=== PATIENT | female | born 1980 | race Caucasian/White ===

== ENCOUNTER 2017-02-08 10:45 | Emergency (ER) | payer BC ==
[2017-02-08 10:53] VITALS: BMI 35.4
--- NOTE | 2017-02-08 11:04 | PDOC ---
History of Present Illness <Emery Tanner - Last Filed: 02/08/17 14:09> - History of Present Illness Initial Comments: 02/08/17 11:35 The patient is a 36 year old female with a past medical hx of NIDDM (on Metformin) and hypertension who presents to the ED complaining of nausea, vomiting, and diarrhea for four days. The patient reports 1-2 episodes of vomiting 10 episodes of diarrhea daily since the onset. She has not eaten any food in four days and has difficulty keeping any liquids down due to her symptoms. She states she lost 12 pounds in four days. The patient reports associated mild LUQ abdominal pain that started four days ago that she describes as a pressure. She reports nothing alleviates or exacerbates her pain. She denies any sick contacts. The patient reports chills, but denies fever, sweats, chest pain, SOB, melena, hematochezia, dysuria, hematuria Surgical: Cholecystectomy, hysterectomy, carpal tunnel, spinal fusion Social: Nonsmoker, denies alcohol or tobacco use <Sana Avalos - Last Filed: 02/08/17 15:29> - General Chief Complaint: Pain Stated Complaint: ABD PAIN, NAUSEA, VOMITING Time Seen by Provider: 02/08/17 11:03 Past History - Past Medical History Anemia: No Asthma: Yes Cancer: No Cardiac Disorders: No CVA: No COPD: No CHF: No Dementia: No Diabetes: Yes (NIDDM) GI Disorders: No Disorders: No HTN: Yes Hypercholesterolemia: Yes Liver Disease: No Suicide Attempt (Hx): No Seizures: No Thyroid Disease: No - Surgical History Abdominal Surgery: Yes (cyst, partial oophorectomy) Cholecystectomy: Yes - Psycho/Social/Smoking Cessation Hx Anxiety: No Suicidal Ideation: No Smoking Status: No Smoking History: Never smoked Have you smoked in the past 12 months: No Number of Cigarettes Smoked Daily: 0 Hx Alcohol Use: No Drug/Substance Use Hx: No Substance Use Type: None Hx Substance Use Treatment: No <Emery Tanner - Last Filed: 02/08/17 14:09> <Sana Avalos - Last Filed: 02/08/17 15:29> - Past Medical History Allergies/Adverse Reactions: Allergies Allergy/AdvReac Type Severity Reaction Status Date / Time No Known Drug Allergies Allergy Verified 02/08/17 10:53 Home Medications: Ambulatory Orders Losartan Potassium 100 mg PO DAILY #0 tablet 03/05/13 Metformin HCl [Glucophage -] 1,000 mg PO BID 05/27/13 Liraglutide [Victoza -] 1.8 mg SQ DAILY@0700 10/19/16 Insulin (Levemir) [Levemir Flexpen -] 5 units SQ HS 02/08/17 Ondansetron [Ondansetron Odt] 8 mg PO TID #30 tab.rapdis 02/08/17 Review of Systems - Review of Systems Able to Perform ROS?: Yes Comments:: 02/08/17 11:35 GENERAL/CONSTITUTIONAL: No fever or chills. No weakness. HEAD, EYES, EARS, NOSE AND THROAT: No change in vision. No ear pain or discharge. No sore throat. CARDIOVASCULAR: No chest pain or shortness of breath. RESPIRATORY: No cough, wheezing, or hemoptysis. GASTROINTESTINAL: +Nausea, vomiting, diarrhea, LUQ abdominal pain. No melena hematochezia. GENITOURINARY: No dysuria, frequency, or change in urination. MUSCULOSKELETAL: No joint or muscle swelling or pain. No neck or back pain. SKIN: No rash NEUROLOGIC: No headache, vertigo, loss of consciousness, or change in strength/ sensation. ENDOCRINE: No increased thirst. No abnormal weight change. HEMATOLOGIC/LYMPHATIC: No anemia, easy bleeding, or history of blood clots. ALLERGIC/IMMUNOLOGIC: No hives or skin allergy. <Sana Avalos - Last Filed: 02/08/17 15:29> *Physical Exam - Vital Signs Last Vital Signs Temp Pulse Resp BP Pulse Ox 98.0 F 115 H 20 131/105 98 02/08/17 10:48 02/08/17 10:48 02/08/17 10:48 02/08/17 10:48 02/08/17 10:48 <Emery Tanner - Last Filed: 02/08/17 14:09> - Vital Signs Last Vital Signs Temp Pulse Resp BP Pulse Ox 98.0 F 115 H 20 131/105 98 02/08/17 10:48 02/08/17 10:48 02/08/17 10:48 02/08/17 10:48 02/08/17 10:48 - Physical Exam Comments: 02/08/17 11:36 GENERAL: Awake, alert, and fully oriented, in no acute distress HEAD: No signs of trauma EYES: PERRLA, EOMI, sclera anicteric, conjunctiva clear ENT: Auricles normal inspection, hearing grossly normal, nares patent, oropharynx clear without exudates. Moist mucosa NECK: Normal ROM, supple, no lymphadenopathy, JVD, or masses LUNGS: Breath sounds equal, clear to auscultation bilaterally. No wheezes, and no crackles HEART: Regular rate and rhythm, normal S1 and S2, no murmurs, rubs or gallops ABDOMEN: +Tenderness to deep palpation to RUQ and LUQ. Soft, normoactive bowel sounds. No guarding, no rebound. No masses EXTREMITIES: Normal range of motion, no edema. No clubbing or cyanosis. No cords, erythema, or tenderness NEUROLOGICAL: Cranial nerves II through XII grossly intact. Normal speech, normal gait SKIN: Warm, Dry, normal turgor, no rashes or lesions noted <Sana Avalos - Last Filed: 02/08/17 15:29> ED Treatment Course - LABORATORY CBC & Chemistry Diagram: 02/08/17 11:37 02/08/17 11:37 <Emery Tanner - Last Filed: 02/08/17 14:09> - LABORATORY CBC & Chemistry Diagram: 02/08/17 11:37 02/08/17 11:37 <Sana Avalos - Last Filed: 02/08/17 15:29> Medical Decision Making - Medical Decision Making 02/08/17 15:29 The patient is a 36 year old female with a past medical hx of NIDDM (on Metformin) and hypertension who presents to the ED complaining of nausea, vomiting, and diarrhea for four days. The plan is to order basic labs and give the patient a liter of fluid. The patient is feeling better after receiving IV fluid. The patient will be discharged. The patient understands and agrees with the plan for discharge. All questions answered. <Sana Avalos - Last Filed: 02/08/17 15:29> *DC/Admit/Observation/Transfer - Discharge Dispostion Admit: No - Attestations Physician Attestion: 02/08/17 11:04 I, Dr. Emery Tanner, attest that this document has been prepared under my direction and personally reviewed by me in its entirety. I further attest, that it accurately reflects all work, treatment, procedures and medical decision -making performed by me. <Emery Tanner - Last Filed: 02/08/17 14:09> - Attestations Scribe Attestion: 02/08/17 11:35 Documentation prepared by Sana Avalos, acting as biomedical photographer for Emery Tanner MD/DO. <Sana Avalos - Last Filed: 02/08/17 15:29> Diagnosis at time of Disposition: Viral gastroenteritis - Discharge Dispostion Disposition: HOME Condition at time of disposition: Good - Prescriptions Prescriptions: Ondansetron [Ondansetron Odt] 8 mg PO TID #30 tab.rapdis - Referrals Referrals: STAFF,NOT ON [Primary Care Provider] - - Patient Instructions Printed Discharge Instructions: DI for Viral Gastroenteritis -- Adult Additional Instructions: Shanelle- Sorry that this virus hit you so hard. Rest, Plenty of Fluids, Zofran ODT for nausea or vomiting. Follow up with your doctor, return to us if any problems. Best- Dr. Emery Tanner
[2017-02-08] MEDS ORDERED: ONDANSETRON 4 MG/2 ML VIAL IVPUSH ONE (11:23)
[2017-02-08] MEDS ORDERED: SODIUM CHLORIDE 1,000 ML IV STA (11:23)
[2017-02-08] MEDS ORDERED: ONDANSETRON 4 MG/2 ML VIAL ONE (11:25)
[2017-02-08 11:57] LABS: BASOPHIL 0.5 % (0-2.0); EOSINOPHIL 1.2 % (0-4.5); MCH 26.8 pg (25.7-33.7); MCHC 33.6 g/dl (32.0-36.0); MEAN CELL VOLUME 79.8 fl (80-96); MEAN PLT VOLUME 7.3 fl (7.5-11.1); NEUTROPHILS 38.3 % (42.8-82.8); PLATELET COUNT 262 K/MM3 (134-434); RDW 13.2 % (11.6-15.6); WHITE BLOOD COUNT 6.2 K/mm3 (4.0-10.0)
[2017-02-08 12:08] LABS: INR 1.3 (0.82-1.09); PROTHROMBIN TIME (PATIENT) 14.4 SEC (9.98-11.88)
[2017-02-08 12:29] LABS: ALBUMIN 3.7 g/dl (3.4-5.0); ALK PHOS 51 U/L (45-117); ANION GAP 8 (8-16); BILIRUBIN,TOTAL 0.6 mg/dL (0.2-1.0); CALCIUM 8.1 mg/dL (8.5-10.1); CO2 22 mmol/L (21-32); CREATININE 0.7 mg/dL (0.55-1.02); GLUCOSE,RANDOM 193 mg/dL (74-106); SGOT/AST 34 U/L (15-37); SGPT/ALT 69 U/L (12-78); TOT PROT 7.2 g/dl (6.4-8.2)
[2017-02-08 13:27] LABS: URINE APPEARANCE CLEAR; URINE BILIRUBIN NEGATIVE (NEGATIVE); URINE BLOOD NEGATIVE (NEGATIVE); URINE COLOR YELLOW; URINE GLUCOSE (UA) NEGATIVE (NEGATIVE); URINE KETONE TRACE (NEGATIVE); URINE LEUK ESTERASE NEGATIVE (NEGATIVE); URINE NITRITE NEGATIVE (NEGATIVE); URINE UROBILINOGEN NEGATIVE E.U./dl (0.2-1.0)
[2017-02-08 13:28] LABS: URINE PROTEIN 1+ (NEGATIVE)
[2017-02-08 13:31] LABS: URINE BACTERIA RARE /hpf (NONE SEEN); URINE MUCUS FEW; URINE RBC 1 /hpf (0-3); URINE WBC 3 /hpf (3-5)
[2017-02-08 13:37] LABS: ACETONE SERUM NEGATIVE (NEGATIVE)
[2017-02-08 15:28] VITALS: BP 134/78; PULSE 78; TEMP 98.4
== END 2017-02-08 15:00 | disposition home or self-care (01) ==
LOC: JER 10:45
PROC: 3E033GC Introduction of Other Therapeutic Substance into Peripheral Vein, Percutaneous Approach (ICD-10-PCS; principal; 2017-02-08)
PROC: 3E0337Z Introduction of Electrolytic and Water Balance Substance into Peripheral Vein, Percutaneous Approach (ICD-10-PCS; 2017-02-08)
DX: A08.4 Viral intestinal infection, unspecified (principal); E11.9 Type 2 diabetes mellitus without complications; I10 Essential (primary) hypertension; Z79.84 Long term (current) use of oral hypoglycemic drugs; J45.909 Unspecified asthma, uncomplicated; E78.00 Pure hypercholesterolemia, unspecified
CPT/HCPCS: 36415; 74020-TC; 80053; 81003; 81015; 82009; 83605; 83690; 84703; 85025; 85610; 99284-25

== ENCOUNTER 2017-04-21 20:16 | Emergency (ER) | payer BC ==
[2017-04-21 20:29] VITALS: BMI 38.4
--- NOTE | 2017-04-21 20:53 | PDOC ---
History of Present Illness - General History Source: Patient Exam Limitations: No Limitations - History of Present Illness Initial Comments: 04/21/17 21:04 The patient is a 36 year old female with a past medical hx of NIDDM (on Metformin) and hypertension who presents to the ED with painful bump to right side of ribcage. Pt states that she has a lipoma on her lower back and is not sure if this is the same thing. Pt denies having any other symptoms. Pt denies any recent injuries. <Bhavya Cummins - Last Filed: 04/21/17 21:04> <Noemí Johnson - Last Filed: 04/22/17 00:22> - General Chief Complaint: Pain Stated Complaint: LUMP ON RIB CAGE WITH PAIN Time Seen by Provider: 04/21/17 20:38 Past History <Bhavya Cummins - Last Filed: 04/21/17 21:04> - Past Medical History Anemia: No Asthma: Yes Cancer: No Cardiac Disorders: No CVA: No COPD: No CHF: No Dementia: No Diabetes: Yes (NIDDM) GI Disorders: No Disorders: No HTN: Yes Hypercholesterolemia: Yes Liver Disease: No Suicide Attempt (Hx): No Seizures: No Thyroid Disease: No - Surgical History Abdominal Surgery: Yes (cyst, partial oophorectomy) Cholecystectomy: Yes - Psycho/Social/Smoking Cessation Hx Anxiety: No Suicidal Ideation: No Smoking Status: No Smoking History: Never smoked Have you smoked in the past 12 months: No Number of Cigarettes Smoked Daily: 0 Hx Alcohol Use: No Drug/Substance Use Hx: No Substance Use Type: None Hx Substance Use Treatment: No <Noemí Johnson - Last Filed: 04/22/17 00:22> - Past Medical History Allergies/Adverse Reactions: Allergies Allergy/AdvReac Type Severity Reaction Status Date / Time No Known Drug Allergies Allergy Verified 04/21/17 20:24 Home Medications: Ambulatory Orders Losartan Potassium 100 mg PO DAILY #0 tablet 03/05/13 Metformin HCl [Glucophage -] 1,000 mg PO BID 05/27/13 Liraglutide [Victoza -] 1.8 mg SQ DAILY@0700 10/19/16 Insulin (Levemir) [Levemir Flexpen -] 5 units SQ HS 02/08/17 Ondansetron [Ondansetron Odt] 8 mg PO TID #30 tab.rapdis 02/08/17 Review of Systems - Review of Systems Able to Perform ROS?: Yes Comments:: 04/21/17 21:04 GENERAL/CONSTITUTIONAL: No fever or chills. No weakness. HEAD, EYES, EARS, NOSE AND THROAT: No change in vision. No ear pain or discharge. No sore throat. CARDIOVASCULAR: No chest pain or shortness of breath. RESPIRATORY: No cough, wheezing, or hemoptysis. GASTROINTESTINAL: No nausea, vomiting, diarrhea or constipation. GENITOURINARY: No dysuria, frequency, or change in urination. MUSCULOSKELETAL: No joint or muscle swelling or pain. No neck or back pain. SKIN: +lump on right side of ribcage NEUROLOGIC: No headache, vertigo, loss of consciousness, or change in strength/ sensation. ENDOCRINE: No increased thirst. No abnormal weight change. HEMATOLOGIC/LYMPHATIC: No anemia, easy bleeding, or history of blood clots. ALLERGIC/IMMUNOLOGIC: No hives or skin allergy. <Bhavya Cummins - Last Filed: 04/21/17 21:04> *Physical Exam - Vital Signs Last Vital Signs Temp Pulse Resp BP Pulse Ox 98.0 F 94 H 18 148/92 99 04/21/17 20:24 04/21/17 20:24 04/21/17 20:24 04/21/17 20:24 04/21/17 20:24 - Physical Exam Comments: 04/21/17 21:05 GENERAL: Awake, alert, and fully oriented, in no acute distress HEAD: No signs of trauma ENT: Auricles normal inspection, hearing grossly normal, nares patent, oropharynx clear EYES: PERRLA, EOMI, sclera anicteric, conjunctiva clear without exudates. Moist mucosa. NECK: Normal ROM, supple, no lymphadenopathy, JVD, or masses LUNGS: Breath sounds equal, clear to auscultation bilaterally. No wheezes, and no crackles HEART: Regular rate and rhythm, normal S1 and S2, no murmurs, rubs or gallops ABDOMEN: Soft, nontender, normoactive bowel sounds. No guarding, no rebound. No masses EXTREMITIES: Normal range of motion, no edema. No clubbing or cyanosis. No cords, erythema, or tenderness NEUROLOGICAL: Cranial nerves II through XII grossly intact. Normal speech, normal gait SKIN: Warm, Dry, normal turgor. +3 cm by 5 cm lump to right flank. <Bhavya Cummins - Last Filed: 04/21/17 21:04> - Vital Signs Last Vital Signs Temp Pulse Resp BP Pulse Ox 98.0 F 94 H 18 148/92 99 04/21/17 20:24 04/21/17 20:24 04/21/17 20:24 04/21/17 20:24 04/21/17 20:24 <Noemí Johnson - Last Filed: 04/22/17 00:22> Medical Decision Making - Medical Decision Making 04/22/17 00:19 Pt has a 3x5cm mass in her right flank that she appreciated a week ago when she was on a cruise. She states it feels like it is getting bigger. No rash or redness on the surface of her skin. Pt has no fever. Pt has a hx of lipoma. Sonogram study reveals 2 discrete oval maasses, unclear if they are lipomas or cysts filled with debris. They are recommending MRI vs CT scan. Non emergent at this time. Pt will be referred back to her PMD or to gen surg for MRI and evaluation of the masses. <Noemí Johnson - Last Filed: 04/22/17 00:22> *DC/Admit/Observation/Transfer - Attestations Scribe Attestion: 04/21/17 21:07 Documentation prepared by Bhavya Cummins, acting as medical records clerk for Noemí Johnson MD. <Bhavya Cummins - Last Filed: 04/21/17 21:04> - Discharge Dispostion Admit: No <Noemí Johnson - Last Filed: 04/22/17 00:22> Diagnosis at time of Disposition: Right flank mass - Discharge Dispostion Disposition: HOME Condition at time of disposition: Stable - Referrals Referrals: Rosana Cox MD [Primary Care Provider] - Sandeep Houston MD [Staff Physician] - Annalisa Luna MD [Staff Physician] - - Patient Instructions Printed Discharge Instructions: Magnetic Resonance Imaging - Post Discharge Activity Work/School Note: Back to Work
[2017-04-21] MEDS ORDERED: IBUPROFEN 600 MG TABLET (FP) PO ONE ×2 (23:18→23:21)
[2017-04-21 23:27] VITALS: BP 149/95; PULSE 69; TEMP 98.1
== END 2017-04-21 23:44 | disposition home or self-care (01) ==
LOC: JER 20:16
DX: R19.03 Right lower quadrant abdominal swelling, mass and lump (principal); I10 Essential (primary) hypertension; E11.9 Type 2 diabetes mellitus without complications; Z79.84 Long term (current) use of oral hypoglycemic drugs
CPT/HCPCS: 76604; 99282-25

== ENCOUNTER 2017-05-01 05:42 | Day surgery (SDC) | payer BC ==
[2017-04-27 16:06] VITALS: BMI 38.4
[2017-04-28 07:41] LABS: MCH 26.6 pg (25.7-33.7); MCHC 33.6 g/dl (32.0-36.0); MEAN CELL VOLUME 79.2 fl (80-96); MEAN PLT VOLUME 7.5 fl (7.5-11.1); PLATELET COUNT 248 K/MM3 (134-434); RDW 13.2 % (11.6-15.6); WHITE BLOOD COUNT 8.2 K/mm3 (4.0-10.0)
[2017-04-28 07:57] LABS: INR 0.98 (0.82-1.09); PROTHROMBIN TIME (PATIENT) 10.8 SEC (9.98-11.88)
[2017-04-28 08:00] LABS: ACTIVATED PTT 25.6 SECONDS (26.9-34.4)
[2017-05-01] MEDS ORDERED: ePHEDrine SULFATE 50 MG/1 ML AMPULE ONE (11:51)
[2017-05-01] MEDS ORDERED: PROPOFOL 20 ML ONE ×7 (11:51→14:31)
[2017-05-01] MEDS ORDERED: ROCURONIUM BROMIDE 50 MG/5 ML VIAL ONE ×2 (11:52→12:35)
[2017-05-01] MEDS ORDERED: SUCCINYLCHOLINE CHLORIDE 200 MG/10 ML VIAL ONE (11:52)
[2017-05-01] MEDS ORDERED: LIDOCAINE HCL 1%, 10 MG/ML (20ML VIAL) ONE ×3 (13:56→15:19)
[2017-05-01] MEDS ORDERED: MIDAZOLAM HCL 2 MG/2 ML SINGLE DOSE VIAL ONE ×4 (14:19→14:37)
[2017-05-01] MEDS ORDERED: LIDOCAINE HCL 1%, 10 MG/ML (50 mL VIAL) IJ ONE ×2 (14:47)
[2017-05-01] MEDS ORDERED: BUPIVACAINE HCL/PF 0.5% (5MG/ML) 10 ML VIAL IJ ONE ×2 (14:47)
[2017-05-01] MEDS ORDERED: BUPIVACAINE HCL/PF 0.5% (5MG/ML) 10 ML VIAL ONE ×2 (14:51→15:19)
--- NOTE | 2017-05-01 15:47 | OP ---
Operative Note - Note: Operative Date: 05/01/17 Pre-Operative Diagnosis: lipomas Operation: excision lipomas Findings: 10.0; 5.0;& 2.5 cm. subfascial lipomas r flank. Post-Operative Diagnosis: Same as Pre-op Surgeon: Sandeep Houston Anesthesia: MAC Specimens Removed: 3 lipomas Estimated Blood Loss (mls): 5
[2017-05-01] MEDS ORDERED: ONDANSETRON 4 MG/2 ML VIAL IVPUSH PRN (15:49)
[2017-05-01] MEDS ORDERED: PROMETHAZINE HCL 25 MG/1 ML VIAL IVPUSH PRN (15:49)
[2017-05-01 15:57] VITALS: TEMP 97.9
[2017-05-01 17:08] VITALS: BP 108/62; PULSE 79
--- NOTE | 2017-05-03 07:25 | OP ---
DATE OF OPERATION: 05/01/2017 PREOPERATIVE DIAGNOSIS: Lipomas of the right flank. POSTOPERATIVE DIAGNOSIS: Lipomas of the right flank. PROCEDURE: Excision lipomas of the right flank. SURGEON: Sandeep Houston MD ANESTHESIA: Local with IV sedation. OPERATIVE FINDINGS: There were three distinct lipomas in the soft tissue of the right flank. They measured 10, 5, and 2.5 cm respectively going from anterior to posterior. The rest of the findings were unremarkable. DESCRIPTION OF PROCEDURE: The patient was placed on the operating table in the left lateral decubitus position, and the area over the previously marked lipomas was prepped with ChloraPrep and draped in sterile fashion. A time-out was taken, and three incisions mapped out, and each one infiltrated with 1% Xylocaine and 0.5% Marcaine in equal concentration. The incision was made with the scalpel and taken down through skin and subcutaneous tissue, and the lipoma identified and bluntly dissected from all the surrounding tissue. The lipoma was traced below the fascia to its insertion into the muscle where the pedicle was identified and clamped, and the lipoma excised and sent for pathological examination. The pedicle was ligated with 2-0 Vicryl suture. Hemostasis was checked for and noted to be good. Then, the wound was copiously irrigated with sterile saline, and hemostasis secured with electrocautery. The deep fascia was then closed with interrupted 2-0 Vicryl, the deep dermis with interrupted 3-0 Vicryl, and the skin edges with 4-0 Biosyn in a subcuticular fashion. The exact same process was repeated for the two remaining lipoma sites, and then, all wounds were dressed with Steri-Strips, fluffs, and dry sterile dressings, and the procedure terminated at this point. The patient was transferred to the post-anesthesia care unit in stable condition, awake and alert. ESTIMATED BLOOD LOSS: Minimal. DRAINS: None. SPECIMENS: Lipomas to Pathology. I, Sandeep Houston, was physically present in the operating room from the time the patient was placed on the operating table until she was transferred to the post-anesthesia care unit in my accompaniment. MD VLAD Verdugo/[id number]
--- NOTE | 2017-05-03 15:50 | PATH ---
Surgical Pathology Report Patient Name: DEN RAMON [facility]. Rec. #: [id number] /Age/Gender: 1980 (Age: 36) / F Account: [id number] Location: [facility] SURGICAL Taken: 05/01/2017 Received: 05/02/2017 Reported: 05/03/2017 Physicians: Sandeep Houston MD Specimen(s) Received A: LIPOMA #1 B: LIPOMA #2 C: LIPOMA #3 Clinical History Lipoma right flank Final Diagnosis A. SOFT TISSUE, RIGHT FLANK, LIPOMA #1, EXCISION: MATURE BENIGN ADIPOSE TISSUE CONSISTENT WITH LIPOMA. B. SOFT TISSUE, RIGHT FLANK, LIPOMA #2, EXCISION: MATURE BENIGN ADIPOSE TISSUE CONSISTENT WITH LIPOMA. C. SOFT TISSUE, RIGHT FLANK, LIPOMA #3, EXCISION: MATURE BENIGN ADIPOSE TISSUE CONSISTENT WITH LIPOMA. Electronically Signed Yaw Villafuerte M.D. Gross Description A. Received in formalin labeled "lipoma #1" is a 5.3 x 2.8 x 1.8 cm portion of yellow, lobulated soft tissue. Sectioning reveals homogeneous yellow, smooth fat. No areas of hemorrhage or necrosis are identified. Personnel Coordinator sections are submitted in 2 cassettes. B. Received in formalin labeled "lipoma #2" is a 3.0 x 2.2 x 1.1 cm portion of yellow, lobulated soft tissue. Sectioning reveals homogeneous yellow, smooth fat. No areas of hemorrhage or necrosis are identified. Personnel Coordinator sections are submitted in one cassette. C. Received in formalin labeled "lipoma #3" is a 2.4 x 1.7 x 1.2 cm portion of yellow, lobulated soft tissue. Sectioning reveals homogeneous yellow, smooth fat. No areas of hemorrhage or necrosis are identified. Personnel Coordinator sections are submitted in one cassette. /05/02/2017 saudi05/02/2017
== END 2017-05-01 17:09 | disposition home or self-care (01) ==
LOC: JASU-SURG 05:42
PROVIDERS: ATTEND Surgery
PROC: 0JBC0ZZ Excision of Pelvic Region Subcutaneous Tissue and Fascia, Open Approach (ICD-10-PCS; principal; 2017-05-01 14:30)
DX: D17.1 Benign lipomatous neoplasm of skin and subcutaneous tissue of trunk (principal)
CPT/HCPCS: 36415; 85027; 85610; 85730; 88304-TC

== ENCOUNTER 2019-01-10 08:11 | Emergency (ER) | payer BC, OTHER ==
[2019-01-10 08:25] VITALS: BP 147/90; PULSE 84; TEMP 98; BMI 37.5
--- NOTE | 2019-01-10 08:28 | PDOC ---
History of Present Illness <Aidee Coyne - Last Filed: 01/10/19 12:59> - General History Source: Patient Exam Limitations: No Limitations - History of Present Illness Initial Comments: 01/10/19 08:57 Patient is a 38-year-old female with past medical history of insulin-dependent diabetes, hypertension, who presents to the ER with left upper and left lower abdominal pain starting last night. Patient states that the pain is more uncomfortable when she sits. Her last meal was last night. She also admits to nausea however denies vomiting. Patient states she recently started insulin approximately 1 week ago for uncontrolled blood sugar. Her metformin was also increased in dosage. Denies fevers, chills, sore throat, difficulty breathing, chest pain, back pain, diarrhea, constipation, frequency, urgency and hematuria. <Shanell Najera - Last Filed: 01/11/19 07:25> - General Chief Complaint: Pain, Acute Stated Complaint: ABD PAIN Time Seen by Provider: 01/10/19 08:25 Past History <Aidee Coyne Ginny - Last Filed: 01/10/19 12:59> - Travel Traveled outside of the country in the last 30 days: No Close contact w/someone who was outside of country & ill: No - Past Medical History Anemia: No Asthma: Yes Cancer: No Cardiac Disorders: No CVA: No COPD: No CHF: No Dementia: No Diabetes: Yes (NIDDM) GI Disorders: No (HEARTBURN-GERD) Disorders: No HTN: Yes Hypercholesterolemia: Yes Liver Disease: Yes (NON FATTY LIVER) Seizures: No Thyroid Disease: No - Surgical History Abdominal Surgery: Yes (cyst, partial oophorectomy) Cholecystectomy: Yes Orthopedic Surgery: Yes (HECTOR CARPAL TUNNEL) - Suicide/Smoking/Psychosocial Hx Smoking Status: No Smoking History: Never smoked Have you smoked in the past 12 months: No Number of Cigarettes Smoked Daily: 0 Hx Alcohol Use: Yes (OCCAS) Drug/Substance Use Hx: No Substance Use Type: Alcohol Hx Substance Use Treatment: No <Shanell Najera - Last Filed: 01/11/19 07:25> - Past Medical History Allergies/Adverse Reactions: Allergies Allergy/AdvReac Type Severity Reaction Status Date / Time No Known Drug Allergies Allergy Verified 01/10/19 08:13 Home Medications: Ambulatory Orders Losartan Potassium 100 mg PO DAILY #0 tablet 03/05/13 metFORMIN HCL [Glucophage -] 1,000 mg PO BID 05/27/13 Aspirin [ASA -] 81 mg PO DAILY 01/10/19 Atorvastatin Calcium [Lipitor] 10 mg PO HS 01/10/19 Lantus Solostar PEN - 15 unit SQ HS 01/10/19 Metoprolol Succinate [Toprol Xl] 12.5 mg PO DAILY 01/10/19 Review of Systems - Review of Systems Able to Perform ROS?: Yes Comments:: 01/10/19 08:26 CONSTITUTIONAL: Absent: fever, chills, diaphoresis, generalized weakness, malaise, loss of appetite HEENT: Absent: rhinorrhea, nasal congestion, throat pain, throat swelling, difficulty swallowing, mouth swelling, ear pain, eye pain, visual Changes CARDIOVASCULAR: Absent: chest pain, loss of consciousness, palpitations, irregular heart rate, peripheral edema RESPIRATORY: Absent: cough, shortness of breath, dyspnea with exertion, orthopnea, wheezing, stridor, hemoptysis GASTROINTESTINAL: Present: nausea, abdominal pain Absent: abdominal distension, vomiting, diarrhea , constipation, melena, hematochezia GENITOURINARY: Absent: dysuria, frequency, urgency, hesitancy, hematuria, flank pain, genital pain MUSCULOSKELETAL: Absent: myalgia, arthralgia, joint swelling SKIN: Absent: rash, itching, pallor HEMATOLOGIC/IMMUNOLOGIC: Absent: easy bleeding, easy bruising, lymphadenopathy, frequent infections ENDOCRINE: Absent: unexplained weight gain, unexplained weight loss, heat intolerance, cold intolerance NEUROLOGIC: Absent: headache, focal weakness or paresthesias, dizziness, unsteady gait, seizure, mental status changes, bladder or bowel incontinence PSYCHIATRIC: Absent: anxiety, depression, suicidal or homicidal ideation, hallucinations. Is the patient limited Indian proficient: No <Shanell Najera - Last Filed: 01/11/19 07:25> *Physical Exam - Vital Signs Last Vital Signs Temp Pulse Resp BP Pulse Ox 98 F 84 18 147/90 99 01/10/19 08:12 01/10/19 08:12 01/10/19 08:12 01/10/19 08:12 01/10/19 08:12 <Aidee Coyne - Last Filed: 01/10/19 12:59> - Vital Signs Last Vital Signs Temp Pulse Resp BP Pulse Ox 98 F 84 18 147/90 99 01/10/19 08:12 01/10/19 08:12 01/10/19 08:12 01/10/19 08:12 01/10/19 08:12 - Physical Exam Comments: 01/10/19 08:27 GENERAL: Well developed, well nourished. Awake and alert. No acute distress. HEENT: Normocephalic, atraumatic. PERRLA, EOMI. No conjunctival pallor. Sclera are non- icteric. Moist mucous membranes. Oropharynx is clear. NECK: Supple. Full ROM. No JVD. Carotid pulses 2+ and symmetric, without bruits. No thyromegaly. No lymphadenopathy. CARDIOVASCULAR: Regular rate and rhythm. No murmurs, rubs, or gallops. Distal pulses are 2+ and symmetric. PULMONARY: No evidence of respiratory distress. Lungs clear to auscultation bilaterally. No wheezing, rales or rhonchi. ABDOMINAL: TTP of the LUQ, LLQ, and suprapubic area. Soft. Mildly distended. No rebound or guarding. No organomegaly. Normoactive bowel sounds. MUSCULOSKELETAL Normal range of motion at all joints. No bony deformities or tenderness. No CVA tenderness. EXTREMITIES: No cyanosis. No clubbing. No edema. No calf tenderness. SKIN: Warm and dry. Normal capillary refill. No rashes. No jaundice. NEUROLOGICAL: Alert, awake, appropriate. Cranial nerves 2-12 intact. No deficits to light touch and temperature in face, upper extremities and lower extremities. No motor deficits in the in face, upper extremities and lower extremities. Normoreflexic in the upper and lower extremities. Normal speech. Toes are down- going bilaterally. Gait is normal without ataxia. PSYCHIATRIC: Cooperative. Good eye contact. Appropriate mood and affect. <Shanell Najera - Last Filed: 01/11/19 07:25> Moderate Sedation - Procedure Monitoring Vital Signs: Procedure Monitoring Vital Signs Temperature 98 F 01/10/19 08:12 Pulse Rate 84 01/10/19 08:12 Respiratory Rate 18 01/10/19 08:12 Blood Pressure 147/90 01/10/19 08:12 O2 Sat by Pulse Oximetry (%) 99 01/10/19 08:12 <Aidee Coyne - Last Filed: 01/10/19 12:59> - Procedure Monitoring Vital Signs: Procedure Monitoring Vital Signs Temperature 98 F 01/10/19 08:12 Pulse Rate 84 01/10/19 08:12 Respiratory Rate 18 01/10/19 08:12 Blood Pressure 147/90 01/10/19 08:12 O2 Sat by Pulse Oximetry (%) 99 01/10/19 08:12 <Shanell Najera - Last Filed: 01/11/19 07:25> ED Treatment Course - LABORATORY CBC & Chemistry Diagram: 01/10/19 09:20 01/10/19 09:20 - ADDITIONAL ORDERS Additional order review: Laboratory Results 01/10/19 01/10/19 10:15 09:20 Sodium 136 Potassium 4.3 Chloride 105 Carbon Dioxide 21 Anion Gap 10 BUN 14 Creatinine 0.7 Creat Clearance w eGFR > 60 Random Glucose 235 H Calcium 8.5 Total Bilirubin 0.8 AST 24 ALT 34 Alkaline Phosphatase 57 Total Protein 7.3 Albumin 3.7 Urine Color Yellow Urine Appearance Slcloudy Urine pH 5.0 Ur Specific [place] 1.037 H Urine Protein 1+ H Urine Glucose (UA) 3+ H Urine Ketones Negative Urine Blood Negative Urine Nitrite Negative Urine Bilirubin Negative Urine Urobilinogen Negative Ur Leukocyte Esterase Negative Urine WBC (Auto) 2 Urine RBC (Auto) 1 Ur Epithelial Cells Moderate Urine Mucus Rare Urine HCG, Qual Negative 01/10/19 09:20 RBC 5.09 MCV 79.2 L MCHC 34.4 RDW 13.2 MPV 7.5 Neutrophils % 63.0 D Lymphocytes % 25.7 D Monocytes % 8.7 Eosinophils % 2.0 Basophils % 0.6 - Medications Given in the ED: ED Medications Discontinued Medications Generic Name Dose Route Start Last Admin Trade Name Freq PRN Reason Stop Dose Admin Acetaminophen 1,000 mg 01/10/19 09:59 01/10/19 11:03 Ofirmev Injection - IVPB 01/10/19 10:00 1,000 mg ONCE ONE Administration Famotidine/Sodium Chloride 20 mg in 50 mls @ 100 mls/hr 01/10/19 08:37 09:29 Pepcid 20 Mg Premixed Ivpb - IVPB 01/10/19 09:06 100 mls/hr ONCE ONE Administration Sodium Chloride 1,000 mls @ 1,000 mls/hr 01/10/19 08:37 01/10/19 09:29 Normal Saline - IV 01/10/19 09:36 1,000 mls/hr ASDIR STA Administration Ondansetron HCl 4 mg 01/10/19 08:37 01/10/19 09:29 Zofran Injection IVPUSH 01/10/19 08:38 4 mg ONCE ONE Administration Tramadol HCl 50 mg 01/10/19 12:17 01/10/19 12:42 Ultram - PO 01/10/19 12:18 50 mg ONCE ONE Administration <Aidee Coyne - Last Filed: 01/10/19 12:59> - LABORATORY CBC & Chemistry Diagram: 01/10/19 09:20 01/10/19 09:20 <Shanell Najera - Last Filed: 01/11/19 07:25> Medical Decision Making - Medical Decision Making 01/10/19 12:58 The patient was seen and evaluated in conjunction with midlevel provider under my direct supervision, ancillary studies were reviewed. I agree with the plan as outlined by DOLLY Najera. HPI, workup/dispo as outlined. VS reviewed, wnl. labs wnl, neg preg test. no s/s infection on UA imaging obtained 01/10/19 12:59 <Aidee Coyne - Last Filed: 01/10/19 12:59> - Medical Decision Making 01/10/19 15:24 Pt is a 38 y/o F who presents with one day of worsening LLQ pain Labs, urine, imaging obtained Hemorrhagic 3cm cyst seen on the L side No appendicitis, diverticulitis Pain relieved with toradol DC home I discussed the physical exam findings, ancillary test results and final diagnoses with the patient. I answered all of the patient's questions. The patient was satisfied with the care received and felt comfortable with the discharge plan and treatment plan. The Patient agrees to follow up with the primary care physician/specialist within 24-72 hours. Return precautions were given. <Shanell Najera - Last Filed: 01/11/19 07:25> *DC/Admit/Observation/Transfer <Aidee Coyne - Last Filed: 01/10/19 12:59> - Discharge Dispostion Decision to Admit order: No <Shanell Najera - Last Filed: 01/11/19 07:25> Diagnosis at time of Disposition: Ovarian cyst Qualifiers: Laterality: left Qualified Code(s): N83.202 - Unspecified ovarian cyst, left side - Discharge Dispostion Disposition: HOME Condition at time of disposition: Stable - Referrals Referrals: Rosana Cox MD [Primary Care Provider] - Dayton Nelson MD [Staff Physician] - - Patient Instructions Printed Discharge Instructions: DI for Ovarian Cyst Additional Instructions: You were evaluated today for your abdominal pain A 2.9x2.2 cm hemorrhagic ovarian cyst was seen on the L side Take Motrin starting tomorrow 800mg every 8 hours as needed for pain Do not take your Metformin tonight. This is because you received a CT scan with contrast. Resume tomorrow Drink plenty of fluids Follow up with your SPORTS DOCTOR as soon as possible. If you do not have one a referral has been provided Return to the ED for worsening pain, vomiting, or if you have any changes in your symptoms. - Post Discharge Activity Forms/Work/School Notes: Back to Work
[2019-01-10] MEDS ORDERED: ONDANSETRON 4 MG/2 ML VIAL IVPUSH ONE (08:37)
[2019-01-10] MEDS ORDERED: FAMOTIDINE 20 MG/50 ML IVPB 20 MG/50 ML MG IVPB ONE ×2 (08:37→09:06)
[2019-01-10] MEDS ORDERED: SODIUM CHLORIDE 1,000 ML IV STA ×2 (08:37→12:43)
[2019-01-10] MEDS ORDERED: ONDANSETRON 4 MG/2 ML VIAL ONE (09:05)
[2019-01-10 09:35] LABS: BASO % 0.6 % (0-2.0); HEMATOCRIT 40.4 % (32.4-45.2); HEMOGLOBIN 13.9 GM/dL (10.7-15.3); LYMPH % 25.7 % (8-40); MCH 27.3 pg (25.7-33.7); MCHC 34.4 g/dl (32.0-36.0); MEAN CELL VOLUME 79.2 fl (80-96); MEAN PLT VOLUME 7.5 fl (7.5-11.1); MONO % 8.7 % (3.8-10.2); PLATELET COUNT 236 K/MM3 (134-434); RBC 5.09 M/mm3 (3.60-5.2); RDW 13.2 % (11.6-15.6); WHITE BLOOD COUNT 9.2 K/mm3 (4.0-10.0)
[2019-01-10] MEDS ORDERED: ACETAMINOPHEN 1000 MG/100 ML VIAL (NON FORMULARY) IVPB ONE (09:59)
[2019-01-10 10:14] LABS: ALBUMIN 3.7 g/dl (3.4-5.0); ALK PHOS 57 U/L (45-117); ANION GAP 10 MMOL/L (8-16); BILIRUBIN,TOTAL 0.8 mg/dL (0.2-1); BLOOD UREA NITROGEN 14 mg/dL (7-18); CALCIUM 8.5 mg/dL (8.5-10.1); CHLORIDE 105 mmol/L (98-107); CO2 21 mmol/L (21-32); CREATININE 0.7 mg/dL (0.55-1.3); GLUCOSE,RANDOM 235 mg/dL (74-106); POTASSIUM 4.3 mmol/L (3.5-5.1); SGOT/AST 24 U/L (15-37); SGPT/ALT 34 U/L (13-61); SODIUM 136 mmol/L (136-145); TOT PROT 7.3 g/dl (6.4-8.2)
[2019-01-10 10:29] LABS: URINE APPEARANCE SLCLOUDY; URINE BILIRUBIN NEGATIVE (<2.0 mg/dL); URINE COLOR YELLOW; URINE GLUCOSE (UA) 3+ (NEGATIVE); URINE KETONE NEGATIVE (NEGATIVE); URINE LEUK ESTERASE NEGATIVE (NEGATIVE); URINE NITRITE NEGATIVE (NEGATIVE); URINE PROTEIN 1+ (NEGATIVE); URINE UROBILINOGEN NEGATIVE mg/dL (0.2-1.0)
[2019-01-10 10:38] LABS: EPI CELLS MODERATE /HPF (FEW); URINE MUCUS RARE
[2019-01-10 10:48] LABS: HCG,QUALITATIVE URINE NEGATIVE
[2019-01-10] MEDS ORDERED: ACETAMINOPHEN INJECTION 100 ML IVPB ONE (10:54)
[2019-01-10] MEDS ORDERED: traMADol HCL 50 MG TABLET PO ONE (12:17)
[2019-01-10] MEDS ORDERED: traMADol HCL 50 MG TABLET ONE (12:45)
[2019-01-10] MEDS ORDERED: KETOROLAC TROMETHAMINE 60 MG/2 ML VIAL IVPUSH ONE (14:43)
[2019-01-10] MEDS ORDERED: KETOROLAC TROMETHAMINE 15 MG/ML VIAL ONE (14:55)
[2019-01-11 07:15] LABS: LIPASE 125 U/L (73-393)
== END 2019-01-10 14:52 | disposition home or self-care (01) ==
LOC: JER 08:11
PROC: 3E0337Z Introduction of Electrolytic and Water Balance Substance into Peripheral Vein, Percutaneous Approach (ICD-10-PCS; principal; 2019-01-10)
PROC: 3E033GC Introduction of Other Therapeutic Substance into Peripheral Vein, Percutaneous Approach (ICD-10-PCS; 2019-01-10)
PROC: 3E033GC Introduction of Other Therapeutic Substance into Peripheral Vein, Percutaneous Approach (ICD-10-PCS; 2019-01-10)
PROC: 3E0333Z Introduction of Anti-inflammatory into Peripheral Vein, Percutaneous Approach (ICD-10-PCS; 2019-01-10)
PROC: 3E033NZ Introduction of Analgesics, Hypnotics, Sedatives into Peripheral Vein, Percutaneous Approach (ICD-10-PCS; 2019-01-10)
DX: N83.202 Unspecified ovarian cyst, left side (principal); I10 Essential (primary) hypertension; E10.9 Type 1 diabetes mellitus without complications; Z79.4 Long term (current) use of insulin; E78.00 Pure hypercholesterolemia, unspecified; J45.909 Unspecified asthma, uncomplicated; K76.0 Fatty (change of) liver, not elsewhere classified
CPT/HCPCS: 36415; 74177-TC; 76830-TC; 80053; 81003; 81015; 83690; 84703; 85025; 87086; 99282-25; J0131; J7030

== ENCOUNTER 2019-02-02 21:13 | Emergency (ER) | payer BC, OTHER ==
[2019-02-02 21:20] VITALS: BMI 38.3
--- NOTE | 2019-02-02 22:14 | PDOC ---
Attending Attestation - HPI HPI: 02/02/19 22:29 The patient is a 38 year old female, with a significant PMH of hypertension and diabetes mellitus, who presents to the emergency department with 3 days of headache. The patient states the headache began gradually while she was driving to [facility] for her daughter's birthday alliance party. The patient reports the headache is described as a pounding sensation on the top of her head, non radiating, with no exacerbating or remitting factors. The patient states she took 400 mg of Advil earlier today with minimal relief. Denies any blurry vision or change in vision. Denies any auras. Denies history of migraines. The patient denies chest pain, shortness of breath, and dizziness. Denies fever, chills, nausea, vomit, diarrhea and constipation. Denies dysuria, frequency, urgency and hematuria. Allergies: NKDA Documentation prepared by Valente Perez, acting as medical technologist chief for Noemí Johnson MD. - Physicial Exam PE: 02/02/19 23:02 GENERAL: Awake, alert, and fully oriented, in no acute distress HEAD: No signs of trauma EYES: PERRLA, EOMI, sclera anicteric, conjunctiva clear. No nystagmus. ENT: Auricles normal inspection, hearing grossly normal, nares patent, oropharynx clear without exudates. Moist mucosa NECK: Normal ROM, supple, no lymphadenopathy, JVD, or masses. No neck stiffness. LUNGS: Breath sounds equal, clear to auscultation bilaterally. No wheezes, and no crackles HEART: Regular rate and rhythm, normal S1 and S2, no murmurs, rubs or gallops ABDOMEN: Soft, nontender, normoactive bowel sounds. No guarding, no rebound. No masses EXTREMITIES: Normal range of motion, no edema. No clubbing or cyanosis. No cords, erythema, or tenderness NEUROLOGICAL: Cranial nerves II through XII grossly intact. Normal speech, normal gait SKIN: Warm, Dry, normal turgor, no rashes or lesions noted. <Valente Perez - Last Filed: 02/02/19 23:02> - Resident Resident Name: Nila Gage - ED Attending Attestation I have performed the following: I have examined & evaluated the patient, The case was reviewed & discussed with the resident, I agree w/resident's findings & plan - Medical Decision Making 02/03/19 01:31 Patient Name: DEN ALBARRAN THIS IS A PRELIMINARY REPORT FROM [facility] DATE OF SERVICE: 2019-02-02 23:46:04 IMAGES: 172 EXAM: CT HEAD CT WITHOUT CONTRAST HISTORY: Headaches COMPARISON: None. FINDINGS: Brain parenchyma is normal in attenuation with no mass or hematoma. There is no midline shift. Corea and white matter differentiation is normal. Ventricles are normal. Sulci and extra-axial CSF spaces are normal. Intracranial vascular structures are normal in attenuation. There is no calvarial fracture. Paranasal sinuses are normally aerated. IMPRESSION: Normal head 02/03/19 06:38 PT'S HEADACHE IS IMPROVED AND HER BP HAS COME DOWN AND SHE WILL FOLLOW WITH HER PMD. NO NEED FOR LUMBAR PUNCTURE AT THIS TIME. <Noemí Johnson - Last Filed: 02/03/19 06:38>
[2019-02-02] MEDS ORDERED: ACETAMINOPHEN 1000 MG/100 ML VIAL (NON FORMULARY) IVPB ONE (22:16)
[2019-02-02] MEDS ORDERED: METOPROLOL TARTRATE 50 MG TABLET (FP) PO ONE (22:18)
[2019-02-02 22:33] LABS: BASO % 0.7 % (0-2.0); EOS % 1.7 % (0-4.5); HEMOGLOBIN 13.1 GM/dL (10.7-15.3); LYMPH % 33.9 % (8-40); MCH 27.6 pg (25.7-33.7); MCHC 34.5 g/dl (32.0-36.0); MEAN CELL VOLUME 79.9 fl (80-96); MEAN PLT VOLUME 7.5 fl (7.5-11.1); MONO % 6.5 % (3.8-10.2); NEUT % 57.2 % (42.8-82.8); PLATELET COUNT 219 K/MM3 (134-434); RBC 4.75 M/mm3 (3.60-5.2); RDW 13.5 % (11.6-15.6); WHITE BLOOD COUNT 10.7 K/mm3 (4.0-10.0)
[2019-02-02] MEDS ORDERED: LOSARTAN POTASSIUM 50 MG TABLET (FP) ONE (22:43)
--- NOTE | 2019-02-02 22:43 | PDOC ---
History of Present Illness - General Chief Complaint: Headache Stated Complaint: HEADACE Time Seen by Provider: 02/02/19 22:14 - History of Present Illness Initial Comments: 02/02/19 22:43 Patient is a 38 y/o female with a history of HTN and DM who presents for headache. Patient states she has had a headache for the last three days and it had a slow onset. She tried to take 2 advil today but it did not help. She has had headaches in the past but none that lasted this long and she does not have a history of migraines. She denies the light or sounds making it worse. She described the pain as a pressure on the top of her head that is non radiating. She feels slightly nauseous but has no other symptoms. Denies sick contacts. Patient states her systolic BP are typically 120-130 and she does not take her pressures at home. 02/03/19 01:33 repeat BP 102/62 Labs WNL, Head CT no acute pathology Past History - Past Medical History Allergies/Adverse Reactions: Allergies Allergy/AdvReac Type Severity Reaction Status Date / Time No Known Drug Allergies Allergy Verified 02/03/19 01:41 Home Medications: Ambulatory Orders Losartan Potassium 100 mg PO DAILY #0 tablet 03/05/13 metFORMIN HCL [Glucophage -] 1,000 mg PO BID 05/27/13 Aspirin [ASA -] 81 mg PO DAILY 01/10/19 Atorvastatin Calcium [Lipitor] 10 mg PO HS 01/10/19 Lantus Solostar PEN - 15 unit SQ HS 01/10/19 Metoprolol Succinate [Toprol Xl] 12.5 mg PO DAILY 01/10/19 Anemia: No Asthma: Yes Cancer: No Cardiac Disorders: No CVA: No COPD: No CHF: No Dementia: No Diabetes: Yes (NIDDM) GI Disorders: No (HEARTBURN-GERD) Disorders: No HTN: Yes Hypercholesterolemia: Yes Liver Disease: Yes (NON FATTY LIVER) Seizures: No Thyroid Disease: No - Surgical History Abdominal Surgery: Yes (cyst, partial oophorectomy) Cholecystectomy: Yes Orthopedic Surgery: Yes (HECTOR CARPAL TUNNEL) - Suicide/Smoking/Psychosocial Hx Smoking Status: No Smoking History: Unknown if ever smoked Have you smoked in the past 12 months: No Number of Cigarettes Smoked Daily: 0 Hx Alcohol Use: Yes (OCCAS) Drug/Substance Use Hx: No Substance Use Type: Alcohol Hx Substance Use Treatment: No Review of Systems - Review of Systems Constitutional: No: Chills, Fever HEENTM: No: Eye Pain, Blurred Vision, Double Vision Respiratory: No: Cough, Shortness of Breath ABD/GI: No: Nausea, Vomiting Musculoskeletal: No: Back Pain Neurological: Yes: Headache. No: Numbness, Seizure, Tingling *Physical Exam - Vital Signs Last Vital Signs Temp Pulse Resp BP Pulse Ox 97.1 F L 98 H 20 161/83 99 02/02/19 21:16 02/02/19 21:16 02/02/19 21:16 02/02/19 21:16 02/02/19 21:16 - Physical Exam Comments: 02/02/19 22:51 GENERAL: A&O x3, mild distress EYES: tearing at eyes, PERRLA, EOMI MOUTH: moist mucus membranes HEART: RRR, no murmurs rubs or gallops CHEST: CTAL B/L GI: soft, non tender, non distended EXTREMITIES: no pitting edema SKIN: no rashes or lesions noted Moderate Sedation - Procedure Monitoring Vital Signs: Procedure Monitoring Vital Signs Temperature 97.1 F L 02/02/19 21:16 Pulse Rate 98 H 02/02/19 21:16 Respiratory Rate 20 02/02/19 21:16 Blood Pressure 161/83 02/02/19 21:16 O2 Sat by Pulse Oximetry (%) 99 02/02/19 21:16 ED Treatment Course - LABORATORY CBC & Chemistry Diagram: 02/02/19 22:25 02/02/19 22:25 *DC/Admit/Observation/Transfer Diagnosis at time of Disposition: Headache Qualifiers: Headache type: unspecified Headache chronicity pattern: unspecified pattern Intractability: not intractable Qualified Code(s): R51 - Headache - Discharge Dispostion Disposition: HOME Condition at time of disposition: Good - Referrals Referrals: Kavon Enrique MD [Staff Physician] - - Patient Instructions Printed Discharge Instructions: Easing a Headache the Natural Way Additional Instructions: You came to the hospital because of a headache. We gave you some medication to help relieve the pain and it has improved. While you were here you were found to have elevated blood pressure. We gave you an extra dose your home medications to help bring this down. You had imaging (Cat Scan) done of your head and it did not show anything abnormal. Please make an appointment to follow up with your primary care physician. You can also make an appoint with a neurologist for the headache. Return to the Emergency Department if the headache worsens, you have any changes in vision, dizziness, vomiting, chest pain or shortness of breath. - Post Discharge Activity
[2019-02-02] MEDS ORDERED: METOPROLOL TARTRATE 25 MG TABLET (FP) ONE (22:44)
[2019-02-02] MEDS ORDERED: ACETAMINOPHEN INJECTION 100 ML IVPB ONE (22:44)
[2019-02-02 22:50] LABS: INR 0.99 (0.83-1.09); PROTHROMBIN TIME (PATIENT) 11.7 SEC (9.7-13.0)
[2019-02-02 23:00] LABS: URINE APPEARANCE CLEAR; URINE BILIRUBIN NEGATIVE (<2.0 mg/dL); URINE COLOR LTYELLOW; URINE GLUCOSE (UA) 3+ (NEGATIVE); URINE KETONE TRACE (NEGATIVE); URINE LEUK ESTERASE NEGATIVE (NEGATIVE); URINE NITRITE NEGATIVE (NEGATIVE); URINE PROTEIN NEGATIVE (NEGATIVE); URINE UROBILINOGEN NEGATIVE mg/dL (0.2-1.0)
[2019-02-02] MEDS ORDERED: METOCLOPRAMIDE HCL INJECTION 10 MG/2 ML VIAL IVPB ONE (23:09)
[2019-02-02 23:11] LABS: ALBUMIN 3.5 g/dl (3.4-5.0); ALK PHOS 63 U/L (45-117); BILIRUBIN,TOTAL 0.2 mg/dL (0.2-1); BLOOD UREA NITROGEN 16 mg/dL (7-18); CHLORIDE 106 mmol/L (98-107); CO2 24 mmol/L (21-32); CREATININE 0.9 mg/dL (0.55-1.3); GLUCOSE,RANDOM 247 mg/dL (74-106); SGPT/ALT 37 U/L (13-61); SODIUM 138 mmol/L (136-145); TOT PROT 6.7 g/dl (6.4-8.2)
[2019-02-02 23:12] LABS: ANION GAP 7 MMOL/L (8-16); POTASSIUM 4.4 mmol/L (3.5-5.1); SGOT/AST 19 U/L (15-37)
[2019-02-02] MEDS ORDERED: METOCLOPRAMIDE HCL INJECTION 10 MG/2 ML VIAL ONE (23:18)
[2019-02-03 01:43] VITALS: BP 114/72; PULSE 70; TEMP 97.8
[2019-02-03] MEDS ORDERED: LOSARTAN POTASSIUM 50 MG TABLET (FP) PO SCH (10:00)
== END 2019-02-03 01:45 | disposition home or self-care (01) ==
LOC: JER 21:13
PROC: 3E033GC Introduction of Other Therapeutic Substance into Peripheral Vein, Percutaneous Approach (ICD-10-PCS; principal; 2019-02-02)
PROC: 3E033GC Introduction of Other Therapeutic Substance into Peripheral Vein, Percutaneous Approach (ICD-10-PCS; 2019-02-02)
PROC: 3E033NZ Introduction of Analgesics, Hypnotics, Sedatives into Peripheral Vein, Percutaneous Approach (ICD-10-PCS; 2019-02-02)
DX: R51 Headache (principal); I10 Essential (primary) hypertension; E11.9 Type 2 diabetes mellitus without complications; Z79.84 Long term (current) use of oral hypoglycemic drugs; E78.00 Pure hypercholesterolemia, unspecified; J45.909 Unspecified asthma, uncomplicated; K21.9 Gastro-esophageal reflux disease without esophagitis
CPT/HCPCS: 36415; 70450-TC; 80053; 81003; 84703; 85025; 85610; 99282-25; J0131